=== PATIENT | female | born 1960 | race African-American/Black ===

== ENCOUNTER 2017-11-06 12:27 | Emergency (ER) | payer MEDICAID ==
[~2017-11-06] VITALS: Ht 162.6 cm; Wt 77.0 kg
[2017-11-06] MEDS ORDERED: LEVETIRACETAM 500MG PREMIX 100 ML IV ONE (14:15)
[2017-11-06] MEDS ORDERED: SODIUM CHLORIDE 0.9% 1,000 ML IV ONE (14:15)
[2017-11-06 15:07] LABS: PROTHROMBIN TIME 10.7 sec (9.4-11.6)
[2017-11-06 15:10] LABS: BASOPHILS % 0.3 % (0.0-2.0); EOSINOPHILS % 0.4 % (0.0-5.0); HEMATOCRIT. 46.1 % (36.0-48.0); HEMOGLOBIN. 15.5 g/dL (12.0-16.0); LYMPHOCYTES % 12.9 % (20.0-50.0); MEAN CORPUSCULAR HEMOGLOBIN 33.5 pg (28.0-32.0); MEAN CORPUSCULAR VOLUME 99.8 fL (81.0-99.0); MONOCYTES % 5.4 % (2.0-8.0); RED BLOOD CELL COUNT 4.62 mill/uL (4.2-5.4); RED CELL DISTRIBUTION WIDTH 17.6 % (11.6-14.6)
[2017-11-06 15:14] LABS: CARBON DIOXIDE 24 mEq/L (21-32); CHLORIDE 107 mEq/L (98-107)
[2017-11-06 15:36] LABS: MEAN PLATELET VOLUME 8.2 fl (7.4-10.4); PLATELET 176 x1000/uL (130-400)
[2017-11-06 17:38] LABS: CLARITY URINE CLEAR (CLEAR); COLOR URINE YELLOW (YELLOW); KETONES URINE NEGATIVE (NEGATIVE); LEUKOCYTE ESTERASE URINE NEGATIVE (NEGATIVE); NITRITE URINE NEGATIVE (NEGATIVE); OCCULT BLOOD URINE NEGATIVE (NEGATIVE); PROTEIN URINE NEGATIVE (NEGATIVE); SPECIFIC GRAVITY URINE 1.022 (1.005-1.030)
[2017-11-06 19:43] VITALS: BP 133/70
== END 2017-11-06 20:02 | disposition home or self-care (01) ==
LOC: ER 12:48
DX: R56.9 Unspecified convulsions (principal); I69.398 Other sequelae of cerebral infarction; G93.89 Other specified disorders of brain; I69.354 Hemiplegia and hemiparesis following cerebral infarction affecting left non-dominant side; Z74.01 Bed confinement status; R03.0 Elevated blood-pressure reading, without diagnosis of hypertension; R94.31 Abnormal electrocardiogram [ECG] [EKG]; R79.89 Other specified abnormal findings of blood chemistry; J45.909 Unspecified asthma, uncomplicated; Z88.6 Allergy status to analgesic agent
CPT/HCPCS: 36415; 70450; 71010; 80053; 81003; 85025; 85610; 85730; 93005; 93970; 96365; 99285; J1953; J7030; Z7610

== ENCOUNTER 2018-09-09 09:31 | Emergency (ER) | payer MEDICAID ==
[~2018-09-09] VITALS: Ht 167.6 cm; Wt 100.0 kg
[2018-09-09] MEDS ORDERED: LEVETIRACETAM 500MG PREMIX 100 ML IV ONE (10:15)
[2018-09-09 10:40] LABS: BASOPHILS % 0.4 % (0.0-2.0); EOSINOPHILS % 1.1 % (0.0-5.0); HEMATOCRIT. 47.9 % (36.0-48.0); HEMOGLOBIN. 15.9 g/dL (12.0-16.0); LYMPHOCYTES % 42.3 % (20.0-50.0); MEAN CORPUSCULAR HEMOGLOBIN 31.5 pg (28.0-32.0); MEAN CORPUSCULAR VOLUME 94.9 fL (81.0-99.0); MEAN PLATELET VOLUME 8.2 fl (7.4-10.4); MONOCYTES % 5.1 % (2.0-8.0); NEUTROPHILS % 51.1 % (40.0-76.0); PLATELET 263 x1000/uL (130-400); RED BLOOD CELL COUNT 5.05 mill/uL (4.2-5.4); RED CELL DISTRIBUTION WIDTH 13.4 % (11.6-14.6)
[2018-09-09 11:06] LABS: CHLORIDE 106 mEq/L (98-107)
[2018-09-09 11:11] LABS: ETHANOL BLOOD < 10 mg/dL
[2018-09-09 11:19] LABS: CARBAMAZEPINE < 0.5 ug/mL (4-12); PHENOBARBITAL < 2.1 ug/mL (15.0-40.0); VALPROIC ACID < 3.0 ug/mL (50-100)
[2018-09-09 11:25] LABS: COLOR URINE YELLOW (YELLOW); KETONES URINE NEGATIVE (NEGATIVE); LEUKOCYTE ESTERASE URINE NEGATIVE (NEGATIVE); NITRITE URINE NEGATIVE (NEGATIVE); OCCULT BLOOD URINE NEGATIVE (NEGATIVE); PROTEIN URINE 1+ (NEGATIVE); SPECIFIC GRAVITY URINE 1.022 (1.005-1.030); UROBILINOGEN URINE 0.2 E.U./dL (0.2-1.0)
[2018-09-09 11:26] LABS: CLARITY URINE HAZY (CLEAR)
[2018-09-09 11:45] LABS: *AMPHETAMINES SCREEN URINE NEGATIVE (NEGATIVE); *BARBITURATES SCREEN URINE NEGATIVE (NEGATIVE); *BENZODIAZEPINES SCREEN URINE NEGATIVE (NEGATIVE); *COCAINE SCREEN URINE NEGATIVE (NEGATIVE); CANNABINOID URINE SCREEN NEGATIVE (NEGATIVE); METHADONE URINE SCREEN NEGATIVE (NEGATIVE); OPIATES URINE SCREEN NEGATIVE (NEGATIVE); PHENCYCLIDINE URINE SCREEN NEGATIVE (NEGATIVE)
[2018-09-09 12:43] VITALS: BP 142/94
== END 2018-09-09 12:51 | disposition home or self-care (01) ==
LOC: ER 09:31
DX: G40.909 Epilepsy, unspecified, not intractable, without status epilepticus (principal); I10 Essential (primary) hypertension; F17.210 Nicotine dependence, cigarettes, uncomplicated; Z71.6 Tobacco abuse counseling
CPT/HCPCS: 36415; 80053; 80156; 80165; 80184; 80185; 80305; 81003; 82962; 85025; 96365; 99284; 99406; G0482; J1953

== ENCOUNTER 2018-12-30 08:52 | Emergency (ER) | payer MEDICAID ==
[~2018-12-30] VITALS: Ht 165.1 cm; Wt 80.0 kg
[2018-12-30] MEDS ORDERED: LEVETIRACETAM 1000MG/100ML 100 ML IV ONE (09:45)
[2018-12-30 10:38] LABS: CHLORIDE 108 mEq/L (98-107)
[2018-12-30 10:45] LABS: BASOPHILS % 0.3 % (0.0-2.0); EOSINOPHILS % 1.5 % (0.0-5.0); HEMATOCRIT. 46.2 % (36.0-48.0); HEMOGLOBIN. 15.8 g/dL (12.0-16.0); LYMPHOCYTES % 37.3 % (20.0-50.0); MEAN CORPUSCULAR HEMOGLOBIN 31.4 pg (28.0-32.0); MEAN CORPUSCULAR VOLUME 91.9 fL (81.0-99.0); MEAN PLATELET VOLUME 8.1 fl (7.4-10.4); MONOCYTES % 7.2 % (2.0-8.0); NEUTROPHILS % 53.7 % (40.0-76.0); PLATELET 333 x1000/uL (130-400); RED BLOOD CELL COUNT 5.03 mill/uL (4.2-5.4); RED CELL DISTRIBUTION WIDTH 13.2 % (11.6-14.6)
[2018-12-30 12:00] VITALS: BP 138/88
== END 2018-12-30 12:00 | disposition home or self-care (01) ==
LOC: ER 08:52
DX: G40.909 Epilepsy, unspecified, not intractable, without status epilepticus (principal)
CPT/HCPCS: 36415; 71045; 80053; 85025; 96365; 99284; J1953; Z7610

== ENCOUNTER 2019-08-17 21:59 | Inpatient (IN) | payer MEDICAID ==
[~2019-08-17] VITALS: Ht 165.1 cm; Wt 93.0 kg
[2019-08-17] MEDS ORDERED: IPRATROPIUM BROMIDE (0.02%) 0.5MG/2.5ML NEB HHN STA (23:18)
[2019-08-17] MEDS ORDERED: ALBUTEROL (0.083%) 2.5MG/3ML NEB HHN STA (23:18)
[2019-08-17 23:53] LABS: BASOPHILS % 0.8 % (0.0-2.0); EOSINOPHILS % 5.5 % (0.0-5.0); HEMATOCRIT. 39.8 % (36.0-48.0); HEMOGLOBIN. 13.3 g/dL (12.0-16.0); LYMPHOCYTES % 37.1 % (20.0-50.0); MEAN CORPUSCULAR HEMOGLOBIN 30.6 pg (28.0-32.0); MEAN CORPUSCULAR VOLUME 91.8 fL (81.0-99.0); MEAN PLATELET VOLUME 8.2 fl (7.4-10.4); MONOCYTES % 7.6 % (2.0-8.0); PLATELET 257 x1000/uL (130-400); RED BLOOD CELL COUNT 4.33 mill/uL (4.2-5.4); RED CELL DISTRIBUTION WIDTH 14.4 % (11.6-14.6)
[2019-08-18 00:07] LABS: CHLORIDE 110 mEq/L (98-107)
[2019-08-18] MEDS ORDERED: CEFTRIAXONE 1 G PREMIX 50 ML IV ONE (01:00)
[2019-08-18] MEDS ORDERED: AZITHROMYCIN 500 MG in DEXT 5% WATER 250 ML IV ONE (01:00)
[2019-08-18 05:00] VITALS: BP 136/83
[2019-08-18] MEDS ORDERED: KEPPSOL MT (06:11)
[2019-08-18] MEDS ORDERED: CLOP75TA4 PO (06:11)
[2019-08-18] MEDS ORDERED: LISI-604 PO (06:11)
[2019-08-18] MEDS ORDERED: AMLO5TAB88 PO (06:11)
[2019-08-18] MEDS ORDERED: LIP40 MT (06:11)
[2019-08-18] MEDS ORDERED: IPRATROPIUM/ALBUTEROL 0.5-3(2.5)MG/3ML NEB HHN PRN (07:15)
[2019-08-18] MEDS ORDERED: CLONIDINE 0.1MG TABLET PO PRN (07:15)
[2019-08-18] MEDS ORDERED: ACETAMINOPHEN 325MG TABLET PO PRN ×2 (07:15→07:45)
[2019-08-18] MEDS ORDERED: LORAZEPAM 0.5MG TABLET PO PRN (07:15)
[2019-08-18] MEDS ORDERED: ONDANSETRON HCL 4MG/2ML INJ IV PRN (07:15)
[2019-08-18] MEDS ORDERED: HYDROCODONE/ACETAMINOPHEN 5/325MG TABLET PO PRN (07:45)
[2019-08-18] MEDS ORDERED: POTASSIUM CHLORIDE 20MEQ TABLET SR PO NR (08:15)
[2019-08-18] MEDS ORDERED: AMLODIPINE 5MG TABLET PO SCH (09:00)
[2019-08-18] MEDS ORDERED: CLOPIDOGREL 75MG TABLET PO SCH (09:00)
[2019-08-18] MEDS ORDERED: LEVETIRACETAM 500MG/5ML CUP PO SCH (09:00)
[2019-08-18] MEDS ORDERED: LISINOPRIL 20MG TABLET PO SCH (09:00)
[2019-08-18 09:25] LABS: *AMPHETAMINES SCREEN URINE NEGATIVE (NEGATIVE); *BARBITURATES SCREEN URINE NEGATIVE (NEGATIVE); *BENZODIAZEPINES SCREEN URINE NEGATIVE (NEGATIVE)
[2019-08-18 09:26] LABS: *COCAINE SCREEN URINE NEGATIVE (NEGATIVE); CANNABINOID URINE SCREEN NEGATIVE (NEGATIVE); METHADONE URINE SCREEN NEGATIVE (NEGATIVE); OPIATES URINE SCREEN NEGATIVE (NEGATIVE); PHENCYCLIDINE URINE SCREEN NEGATIVE (NEGATIVE)
[2019-08-18] MEDS: LEVETIRACETAM 500MG/5ML CUP PO SCH ×2 (09:40→20:25)
[2019-08-18] MEDS: AMLODIPINE 5MG TABLET PO SCH (09:41)
[2019-08-18] MEDS: ATORVASTATIN CALCIUM 40MG TABLET PO SCH (09:41)
[2019-08-18] MEDS: CLOPIDOGREL 75MG TABLET PO SCH (09:42)
[2019-08-18] MEDS: LISINOPRIL 20MG TABLET PO SCH (09:42)
[2019-08-18] MEDS: ENOXAPARIN 30MG/0.3ML SYR SUBCUT SCH ×2 (09:43→20:24)
[2019-08-18 09:52] LABS: BASOPHILS % 0.7 % (0.0-2.0); EOSINOPHILS % 3.8 % (0.0-5.0); HEMATOCRIT. 39.2 % (36.0-48.0); HEMOGLOBIN. 12.9 g/dL (12.0-16.0); LYMPHOCYTES % 29.2 % (20.0-50.0); MEAN CORPUSCULAR HEMOGLOBIN 30.4 pg (28.0-32.0); MEAN CORPUSCULAR VOLUME 92.2 fL (81.0-99.0); MEAN PLATELET VOLUME 8.2 fl (7.4-10.4); MONOCYTES % 6.6 % (2.0-8.0); NEUTROPHILS % 59.7 % (40.0-76.0); PLATELET 257 x1000/uL (130-400); RED BLOOD CELL COUNT 4.25 mill/uL (4.2-5.4); RED CELL DISTRIBUTION WIDTH 14.7 % (11.6-14.6)
[2019-08-18 10:18] LABS: CHLORIDE 109 mEq/L (98-107)
[2019-08-18 10:26] LABS: HDL CHOLESTEROL 61 mg/dL (40-59); LDL CHOLESTEROL 99 mg/dL (5-100)
[2019-08-18 12:00] VITALS: BP 114/70
[2019-08-18] MEDS: GUAIFENESIN-DM 200MG-20MG/10ML UDC PO PRN ×2 (13:41→23:14)
[2019-08-18 16:00] VITALS: BP 106/66
[2019-08-18 20:00] VITALS: BP 120/72
[2019-08-18] MEDS ORDERED: ATORVASTATIN CALCIUM 40MG TABLET PO SCH (21:00)
[2019-08-18] MEDS: IPRATROPIUM/ALBUTEROL 0.5-3(2.5)MG/3ML NEB HHN SCH (21:10)
[2019-08-18] MEDS: HYDROCODONE/ACETAMINOPHEN 5/325MG TABLET PO PRN (23:15)
[2019-08-18] MEDS: CEFTRIAXONE 1,000 MG in DEXTROSE 5% WATER 50 ML IV SCH (23:16)
[2019-08-18] MEDS: AZITHROMYCIN 500 MG in DEXT 5% WATER 250 ML IV SCH (23:17)
[2019-08-19] VITALS: BP 116/70
[2019-08-19] MEDS ORDERED: CEFTRIAXONE 1 G PREMIX 50 ML IV SCH
[2019-08-19 04:00] VITALS: BP 123/60
[2019-08-19 07:13] LABS: CHLORIDE 110 mEq/L (98-107)
[2019-08-19] MEDS: ATORVASTATIN CALCIUM 40MG TABLET PO SCH (09:07)
[2019-08-19] MEDS: LEVETIRACETAM 500MG/5ML CUP PO SCH ×2 (09:07→20:24)
[2019-08-19] MEDS: AMLODIPINE 5MG TABLET PO SCH (09:07)
[2019-08-19] MEDS: CLOPIDOGREL 75MG TABLET PO SCH (09:07)
[2019-08-19] MEDS: ENOXAPARIN 30MG/0.3ML SYR SUBCUT SCH ×2 (09:08→20:25)
[2019-08-19] MEDS: LISINOPRIL 20MG TABLET PO SCH (09:08)
[2019-08-19 09:30] LABS: BASOPHILS % 0.8 % (0.0-2.0); EOSINOPHILS % 6.7 % (0.0-5.0); HEMATOCRIT. 39.4 % (36.0-48.0); HEMOGLOBIN. 13.2 g/dL (12.0-16.0); LYMPHOCYTES % 39.2 % (20.0-50.0); MEAN CORPUSCULAR HEMOGLOBIN 30.9 pg (28.0-32.0); MEAN CORPUSCULAR VOLUME 91.7 fL (81.0-99.0); MEAN PLATELET VOLUME 8.4 fl (7.4-10.4); MONOCYTES % 6.8 % (2.0-8.0); NEUTROPHILS % 46.5 % (40.0-76.0); PLATELET 275 x1000/uL (130-400); RED BLOOD CELL COUNT 4.29 mill/uL (4.2-5.4); RED CELL DISTRIBUTION WIDTH 14.1 % (11.6-14.6)
[2019-08-19] MEDS: IPRATROPIUM/ALBUTEROL 0.5-3(2.5)MG/3ML NEB HHN SCH ×3 (10:20→20:36)
[2019-08-19 12:00] VITALS: BP_SYST 105; BP_SYST 112; BP_DIAS 65; BP_DIAS 78
[2019-08-19] MEDS: HYDROCODONE/ACETAMINOPHEN 5/325MG TABLET PO PRN (13:42)
[2019-08-19 16:00] VITALS: BP 104/64
[2019-08-19] MEDS: MONTELUKAST SODIUM 10MG TABLET PO SCH (17:42)
[2019-08-19] MEDS ORDERED: IOHEXOL-350 100 ML BOTTLE ONE (18:30)
[2019-08-19 20:00] VITALS: BP 127/83
[2019-08-19] MEDS: DOCUSATE SODIUM 100MG CAPSULE PO PRN (20:24)
[2019-08-19] MEDS: GUAIFENESIN-DM 200MG-20MG/10ML UDC PO PRN (20:35)
[2019-08-19] MEDS: BUDESONIDE 0.5MG/2ML NEB HHN SCH (20:36)
[2019-08-20] VITALS: BP 135/90
[2019-08-20] MEDS: CEFTRIAXONE 1,000 MG in DEXTROSE 5% WATER 50 ML IV SCH (00:23)
[2019-08-20] MEDS: AZITHROMYCIN 500 MG in DEXT 5% WATER 250 ML IV SCH (00:23)
[2019-08-20 04:00] VITALS: BP 118/68
[2019-08-20 08:49] VITALS: BP 109/58
[2019-08-20] MEDS: IPRATROPIUM/ALBUTEROL 0.5-3(2.5)MG/3ML NEB HHN SCH ×3 (09:01→20:19)
[2019-08-20] MEDS: BUDESONIDE 0.5MG/2ML NEB HHN SCH ×2 (09:01→20:19)
[2019-08-20] MEDS: LEVETIRACETAM 500MG/5ML CUP PO SCH ×2 (09:54→20:31)
[2019-08-20] MEDS: LISINOPRIL 20MG TABLET PO SCH (09:56)
[2019-08-20] MEDS: CLOPIDOGREL 75MG TABLET PO SCH (09:56)
[2019-08-20] MEDS: ATORVASTATIN CALCIUM 40MG TABLET PO SCH (09:57)
[2019-08-20] MEDS: AMLODIPINE 5MG TABLET PO SCH (09:57)
[2019-08-20] MEDS: ENOXAPARIN 30MG/0.3ML SYR SUBCUT SCH ×2 (09:57→20:31)
[2019-08-20] MEDS: HYDROCODONE/ACETAMINOPHEN 5/325MG TABLET PO PRN (10:06)
[2019-08-20 12:00] VITALS: BP 117/61
[2019-08-20] MEDS ORDERED: BISACODYL 5MG TABLET PO PRN (14:15)
[2019-08-20] MEDS ORDERED: BISACODYL 5MG TABLET PO NR (14:45)
[2019-08-20] MEDS: DOCUSATE SODIUM 250MG CAPSULE PO SCH (15:43)
[2019-08-20 16:34] VITALS: BP 144/77
[2019-08-20] MEDS: MONTELUKAST SODIUM 10MG TABLET PO SCH (17:50)
[2019-08-20 20:00] VITALS: BP 123/72
[2019-08-21] VITALS: BP 103/58
[2019-08-21] MEDS: CEFTRIAXONE 1,000 MG in DEXTROSE 5% WATER 50 ML IV SCH (02:36)
[2019-08-21] MEDS: HYDROCODONE/ACETAMINOPHEN 5/325MG TABLET PO PRN ×2 (03:03→18:42)
[2019-08-21 04:00] VITALS: BP 114/73
[2019-08-21] MEDS: AZITHROMYCIN 500 MG in DEXT 5% WATER 250 ML IV SCH (04:00)
[2019-08-21 07:43] LABS: BASOPHILS % 0.6 % (0.0-2.0); EOSINOPHILS % 7.7 % (0.0-5.0); HEMATOCRIT. 35.2 % (36.0-48.0); HEMOGLOBIN. 11.9 g/dL (12.0-16.0); LYMPHOCYTES % 37.3 % (20.0-50.0); MEAN CORPUSCULAR HEMOGLOBIN 31.1 pg (28.0-32.0); MEAN CORPUSCULAR VOLUME 91.6 fL (81.0-99.0); MEAN PLATELET VOLUME 8.5 fl (7.4-10.4); MONOCYTES % 7.8 % (2.0-8.0); NEUTROPHILS % 46.6 % (40.0-76.0); PLATELET 266 x1000/uL (130-400); RED BLOOD CELL COUNT 3.84 mill/uL (4.2-5.4); RED CELL DISTRIBUTION WIDTH 14.4 % (11.6-14.6)
[2019-08-21 08:00] VITALS: BP 107/62
[2019-08-21 08:12] LABS: CHLORIDE 109 mEq/L (98-107)
[2019-08-21] MEDS: LEVETIRACETAM 500MG/5ML CUP PO SCH ×2 (09:08→21:59)
[2019-08-21] MEDS: CLOPIDOGREL 75MG TABLET PO SCH (09:09)
[2019-08-21] MEDS: DOCUSATE SODIUM 100MG CAPSULE PO PRN (09:09)
[2019-08-21] MEDS: ATORVASTATIN CALCIUM 40MG TABLET PO SCH (09:09)
[2019-08-21] MEDS: LISINOPRIL 20MG TABLET PO SCH (09:09)
[2019-08-21] MEDS: ENOXAPARIN 30MG/0.3ML SYR SUBCUT SCH ×2 (09:09→22:00)
[2019-08-21] MEDS: AMLODIPINE 5MG TABLET PO SCH (09:09)
[2019-08-21] MEDS: DOCUSATE SODIUM 250MG CAPSULE PO SCH (09:13)
[2019-08-21] MEDS: BUDESONIDE 0.5MG/2ML NEB HHN SCH ×2 (10:15→21:48)
[2019-08-21 12:53] VITALS: BP 118/66
[2019-08-21] MEDS: IPRATROPIUM/ALBUTEROL 0.5-3(2.5)MG/3ML NEB HHN SCH ×2 (14:15→21:48)
[2019-08-21] MEDS: MONTELUKAST SODIUM 10MG TABLET PO SCH (16:21)
[2019-08-21 16:49] VITALS: BP 97/57
[2019-08-21 20:00] VITALS: BP 103/60
[2019-08-22 00:02] VITALS: BP 103/66
[2019-08-22] MEDS: CEFTRIAXONE 1,000 MG in DEXTROSE 5% WATER 50 ML IV SCH (01:51)
[2019-08-22] MEDS: AZITHROMYCIN 500 MG in DEXT 5% WATER 250 ML IV SCH (01:51)
[2019-08-22 04:00] VITALS: BP 134/83
[2019-08-22] MEDS: HYDROCODONE/ACETAMINOPHEN 5/325MG TABLET PO PRN (04:39)
[2019-08-22] MEDS: IPRATROPIUM/ALBUTEROL 0.5-3(2.5)MG/3ML NEB HHN SCH ×3 (07:53→14:01)
[2019-08-22] MEDS: BUDESONIDE 0.5MG/2ML NEB HHN SCH (07:53)
[2019-08-22 08:00] VITALS: BP 108/74
[2019-08-22] MEDS: CLOPIDOGREL 75MG TABLET PO SCH (10:04)
[2019-08-22] MEDS: LEVETIRACETAM 500MG/5ML CUP PO SCH (10:04)
[2019-08-22] MEDS: ATORVASTATIN CALCIUM 40MG TABLET PO SCH (10:05)
[2019-08-22] MEDS: DOCUSATE SODIUM 250MG CAPSULE PO SCH (10:05)
[2019-08-22] MEDS: AMLODIPINE 5MG TABLET PO SCH (10:05)
[2019-08-22] MEDS: LISINOPRIL 20MG TABLET PO SCH (10:06)
[2019-08-22] MEDS: ENOXAPARIN 30MG/0.3ML SYR SUBCUT SCH (10:19)
[2019-08-22 12:39] VITALS: BP 108/77
== END 2019-08-22 16:17 | disposition home or self-care (01) | DRG 133 ==
LOC: ER 23:23 → 8WST 08-18 02:32 → EDBEDREQ 08-18 02:36 → EDBEDREQTM 08-18 02:36 → ENRESERV 08-18 03:32
PROVIDERS: ADMIT Internal Medicine; ATTEND Internal Medicine
DX: J96.00 Acute respiratory failure, unspecified whether with hypoxia or hypercapnia (principal); J18.1 Lobar pneumonia, unspecified organism; D72.1 Eosinophilia; D68.59 Other primary thrombophilia; J44.0 Chronic obstructive pulmonary disease with (acute) lower respiratory infection; J45.901 Unspecified asthma with (acute) exacerbation; R56.9 Unspecified convulsions; J44.1 Chronic obstructive pulmonary disease with (acute) exacerbation; E78.5 Hyperlipidemia, unspecified; I10 Essential (primary) hypertension; K59.00 Constipation, unspecified; I45.81 Long QT syndrome; E87.6 Hypokalemia; I69.354 Hemiplegia and hemiparesis following cerebral infarction affecting left non-dominant side; Z85.038 Personal history of other malignant neoplasm of large intestine; Z80.6 Family history of leukemia; Z80.0 Family history of malignant neoplasm of digestive organs; Z87.891 Personal history of nicotine dependence; Z79.899 Other long term (current) drug therapy; Z88.8 Allergy status to other drugs, medicaments and biological substances; Z92.21 Personal history of antineoplastic chemotherapy; Z98.891 History of uterine scar from previous surgery
CPT/HCPCS: 36415; 71045; 71275; 80048; 80061; 80305; 83036; 83605; 83735; 83880; 84145; 84484; 85379; 93005; 93970; 94640; 96374; 97112; 97116; 97162; 97166; 99285; C1893; J0456; J0696; J1650; J7060; J7611; J7620; J7626; Q9967

== ENCOUNTER 2021-05-31 11:20 | Inpatient (IN) | payer MEDICAID ==
[~2021-05-31] VITALS: Ht 162.6 cm; Wt 82.1 kg
[~2021-05-31 11:20] MED LIST: AMLO5TAB88 PO; CLOP75TA4 PO; KEPPSOL MT; LIP40 MT; LISI20TA31 PO
[2021-05-31] MEDS ORDERED: LORAZEPAM 0.5MG TABLET PO ONE (12:00)
[2021-05-31 12:36] LABS: BASOPHILS % 0.4 % (0.0-2.0); EOSINOPHILS % 0.9 % (0.0-5.0); HEMOGLOBIN. 9.4 g/dL (12.0-16.0); LYMPHOCYTES % 18.4 % (20.0-50.0); MEAN CORPUSCULAR HEMOGLOBIN 17.7 pg (28.0-32.0); MEAN CORPUSCULAR VOLUME 59.8 fL (81.0-99.0); MEAN PLATELET VOLUME 8.5 fl (7.4-10.4); MONOCYTES % 4.2 % (2.0-8.0); NEUTROPHILS % 76.1 % (40.0-76.0); PLATELET 461 x1000/uL (130-400); RED BLOOD CELL COUNT 5.34 mill/uL (4.2-5.4); RED CELL DISTRIBUTION WIDTH 22.7 % (11.6-14.6)
[2021-05-31 12:41] LABS: CHLORIDE 114 mEq/L (98-107)
[2021-05-31 12:44] LABS: PROTHROMBIN TIME 10.7 sec (9.6-11.0)
[2021-05-31 12:46] LABS: ETHANOL BLOOD < 10 mg/dL
[2021-05-31 12:51] LABS: T4 FREE 0.88 ng/dL (0.76-1.46)
[2021-05-31 13:05] LABS: PLATELET ESTIMATE SLIGHTLY INCREASED
[2021-05-31] MEDS ORDERED: POTASSIUM CHLORIDE 20MEQ TABLET SR PO ONE (14:00)
[2021-05-31] MEDS: DIPHENHYDRAMINE 50MG/ML VIAL IV PRN (19:03)
[2021-05-31 21:59] VITALS: BP 154/84
[2021-05-31] MEDS ORDERED: LORAZEPAM 1MG TABLET PO PRN (23:45)
[2021-06-01] VITALS: BP 128/86
[2021-06-01 04:00] VITALS: BP 123/77
[2021-06-01 07:28] LABS: BASOPHILS % 0.8 % (0.0-2.0); EOSINOPHILS % 3.6 % (0.0-5.0); HEMOGLOBIN. 8.8 g/dL (12.0-16.0); LYMPHOCYTES % 38.8 % (20.0-50.0); MEAN CORPUSCULAR HEMOGLOBIN 17.8 pg (28.0-32.0); MEAN CORPUSCULAR VOLUME 60.2 fL (81.0-99.0); MEAN PLATELET VOLUME 8.5 fl (7.4-10.4); MONOCYTES % 7.3 % (2.0-8.0); NEUTROPHILS % 49.5 % (40.0-76.0); PLATELET 404 x1000/uL (130-400); RED BLOOD CELL COUNT 4.98 mill/uL (4.2-5.4); RED CELL DISTRIBUTION WIDTH 22.1 % (11.6-14.6)
[2021-06-01 07:43] LABS: CHLORIDE 114 mEq/L (98-107)
[2021-06-01 07:50] LABS: LDL CHOLESTEROL 78 mg/dL (5-100)
[2021-06-01 07:51] LABS: HDL CHOLESTEROL 57 mg/dL (40-59)
[2021-06-01 08:22] VITALS: BP 133/67
[2021-06-01] MEDS: LEVETIRACETAM 500MG TABLET PO SCH ×2 (08:54→17:50)
[2021-06-01] MEDS: METOPROLOL TARTRATE 50MG TABLET PO SCH ×2 (08:56→17:50)
[2021-06-01] MEDS: CLOPIDOGREL 75MG TABLET PO SCH (08:57)
[2021-06-01] MEDS: AMLODIPINE 10MG TABLET PO SCH (08:57)
[2021-06-01 12:26] VITALS: BP 138/79
[2021-06-01] MEDS ORDERED: POTASSIUM CHLORIDE 20MEQ TABLET SR PO NR (14:30)
[2021-06-01] MEDS ORDERED: NAPROXEN 250MG TABLET PO PRN (15:45)
[2021-06-01 16:00] VITALS: BP_SYST 130; BP_DIAS 83; BP_DIAS 84
[2021-06-01] MEDS ORDERED: KETOROLAC 10MG TABLET PO PRN ×2 (18:15→20:00)
[2021-06-01 20:00] VITALS: BP 112/70
[2021-06-01] MEDS ORDERED: LORAZEPAM 2MG/ML CPJ IV PRN (20:30)
[2021-06-01] MEDS: ATORVASTATIN CALCIUM 40MG TABLET PO SCH (20:46)
[2021-06-02] VITALS: BP_SYST 106; BP_DIAS 64; BP_DIAS 68
[2021-06-02 04:00] VITALS: BP 101/71
[2021-06-02 08:00] VITALS: BP 108/65
[2021-06-02] MEDS: CLOPIDOGREL 75MG TABLET PO SCH (09:04)
[2021-06-02] MEDS: METOPROLOL TARTRATE 50MG TABLET PO SCH ×2 (09:04→18:08)
[2021-06-02] MEDS: LEVETIRACETAM 500MG TABLET PO SCH ×2 (09:04→18:07)
[2021-06-02] MEDS: AMLODIPINE 10MG TABLET PO SCH (09:05)
[2021-06-02 12:00] VITALS: BP 106/64
[2021-06-02 13:41] LABS: TOTAL IRON BINDING CAPACITY 372 ug/dL (250-450)
[2021-06-02 15:24] VITALS: BP 119/79
[2021-06-02] MEDS: ATORVASTATIN CALCIUM 40MG TABLET PO SCH (20:43)
[2021-06-02 20:44] VITALS: BP 104/66
[2021-06-03] VITALS (7 sets, daily range): BP systolic 94–122; BP diastolic 47–81
[2021-06-03] MEDS: LEVETIRACETAM 500MG TABLET PO SCH ×2 (10:02→16:52)
[2021-06-03] MEDS: CLOPIDOGREL 75MG TABLET PO SCH (10:02)
[2021-06-03] MEDS: AMLODIPINE 10MG TABLET PO SCH (10:02)
[2021-06-03] MEDS: METOPROLOL TARTRATE 50MG TABLET PO SCH ×2 (10:02→16:53)
[2021-06-03] MEDS: FERROUS SULFATE 325MG TABLET PO SCH (16:52)
[2021-06-03] MEDS: DOCUSATE SODIUM 100MG CAPSULE PO SCH (16:53)
[2021-06-04] VITALS: BP 106/70
[2021-06-04] MEDS: ATORVASTATIN CALCIUM 40MG TABLET PO SCH ×2 (00:18→20:18)
[2021-06-04 04:00] VITALS: BP 123/74
[2021-06-04 08:00] VITALS: BP 100/56
[2021-06-04] MEDS: AMLODIPINE 10MG TABLET PO SCH (09:00)
[2021-06-04] MEDS: METOPROLOL TARTRATE 50MG TABLET PO SCH ×2 (09:00→17:00)
[2021-06-04] MEDS: DOCUSATE SODIUM 100MG CAPSULE PO SCH ×2 (09:14→17:12)
[2021-06-04] MEDS: CLOPIDOGREL 75MG TABLET PO SCH (09:14)
[2021-06-04] MEDS: FERROUS SULFATE 325MG TABLET PO SCH ×3 (09:14→17:12)
[2021-06-04] MEDS: LEVETIRACETAM 500MG TABLET PO SCH ×2 (09:14→17:12)
[2021-06-04 12:00] VITALS: BP 93/46
[2021-06-04 16:00] VITALS: BP 108/72
[2021-06-04 20:00] VITALS: BP 118/58
[2021-06-05] VITALS: BP 115/61
[2021-06-05 04:00] VITALS: BP 115/57
[2021-06-05 08:00] VITALS: BP 116/58
[2021-06-05] MEDS: AMLODIPINE 10MG TABLET PO SCH (09:30)
[2021-06-05] MEDS: LEVETIRACETAM 500MG TABLET PO SCH ×2 (09:31→17:02)
[2021-06-05] MEDS: FERROUS SULFATE 325MG TABLET PO SCH ×2 (09:31→17:04)
[2021-06-05] MEDS: CLOPIDOGREL 75MG TABLET PO SCH (09:31)
[2021-06-05] MEDS: DOCUSATE SODIUM 100MG CAPSULE PO SCH ×2 (09:31→17:02)
[2021-06-05] MEDS: METOPROLOL TARTRATE 50MG TABLET PO SCH ×2 (09:32→17:04)
[2021-06-05] MEDS ORDERED: LACTULOSE 20G/30ML UDC PO NR (09:45)
[2021-06-05 12:00] VITALS: BP 133/80
[2021-06-05 16:00] VITALS: BP 111/67
[2021-06-05 20:00] VITALS: BP 106/64
[2021-06-05] MEDS: ATORVASTATIN CALCIUM 40MG TABLET PO SCH (21:03)
[2021-06-06] VITALS: BP 114/67
[2021-06-06 04:00] VITALS: BP 151/70
[2021-06-06 08:00] VITALS: BP 133/61
[2021-06-06] MEDS: DOCUSATE SODIUM 100MG CAPSULE PO SCH ×2 (08:43→17:27)
[2021-06-06] MEDS: LEVETIRACETAM 500MG TABLET PO SCH ×2 (08:43→17:27)
[2021-06-06] MEDS: FERROUS SULFATE 325MG TABLET PO SCH ×3 (08:43→17:27)
[2021-06-06] MEDS: CLOPIDOGREL 75MG TABLET PO SCH (08:43)
[2021-06-06] MEDS: METOPROLOL TARTRATE 50MG TABLET PO SCH ×2 (08:44→17:27)
[2021-06-06] MEDS: AMLODIPINE 10MG TABLET PO SCH (08:44)
[2021-06-06 12:00] VITALS: BP 145/77
[2021-06-06] MEDS: DIPHENHYDRAMINE 50MG/ML VIAL IV PRN (13:10)
[2021-06-06 16:00] VITALS: BP 119/70
[2021-06-06] MEDS ORDERED: LACTULOSE 20G/30ML UDC PO NR (17:00)
[2021-06-06 20:00] VITALS: BP 96/69
[2021-06-06] MEDS: ATORVASTATIN CALCIUM 40MG TABLET PO SCH (21:28)
[2021-06-07] VITALS (7 sets, daily range): BP systolic 108–117; BP diastolic 51–76
[2021-06-07] MEDS: AMLODIPINE 10MG TABLET PO SCH (09:00)
[2021-06-07] MEDS: METOPROLOL TARTRATE 50MG TABLET PO SCH ×2 (09:00→17:11)
[2021-06-07] MEDS: CLOPIDOGREL 75MG TABLET PO SCH (09:02)
[2021-06-07] MEDS: FERROUS SULFATE 325MG TABLET PO SCH ×3 (09:02→17:11)
[2021-06-07] MEDS: DOCUSATE SODIUM 100MG CAPSULE PO SCH ×2 (09:02→17:11)
[2021-06-07] MEDS: LEVETIRACETAM 500MG TABLET PO SCH ×2 (09:02→17:11)
[2021-06-07] MEDS: DIPHENHYDRAMINE 50MG/ML VIAL IV PRN (18:05)
[2021-06-07] MEDS: ATORVASTATIN CALCIUM 40MG TABLET PO SCH (20:37)
[2021-06-08] VITALS: BP 114/67
[2021-06-08 04:00] VITALS: BP 125/65
[2021-06-08] MEDS: FERROUS SULFATE 325MG TABLET PO SCH ×3 (06:50→18:05)
[2021-06-08 08:00] VITALS: BP 136/76
[2021-06-08] MEDS: LEVETIRACETAM 500MG TABLET PO SCH ×2 (09:51→18:05)
[2021-06-08] MEDS: DOCUSATE SODIUM 100MG CAPSULE PO SCH ×2 (09:51→18:05)
[2021-06-08] MEDS: METOPROLOL TARTRATE 50MG TABLET PO SCH ×2 (09:52→17:00)
[2021-06-08] MEDS: AMLODIPINE 10MG TABLET PO SCH (09:52)
[2021-06-08] MEDS: CLOPIDOGREL 75MG TABLET PO SCH (09:52)
[2021-06-08 12:00] VITALS: BP 112/67
[2021-06-08 16:00] VITALS: BP 105/61
[2021-06-08 20:00] VITALS: BP 111/58
[2021-06-08] MEDS: ATORVASTATIN CALCIUM 40MG TABLET PO SCH (21:58)
[2021-06-09] VITALS: BP 106/65
[2021-06-09 04:00] VITALS: BP 102/62
[2021-06-09 08:00] VITALS: BP 109/63
[2021-06-09] MEDS: CLOPIDOGREL 75MG TABLET PO SCH (09:43)
[2021-06-09] MEDS: FERROUS SULFATE 325MG TABLET PO SCH ×3 (09:43→17:55)
[2021-06-09] MEDS: METOPROLOL TARTRATE 50MG TABLET PO SCH ×2 (09:43→17:54)
[2021-06-09] MEDS: AMLODIPINE 10MG TABLET PO SCH (09:43)
[2021-06-09] MEDS: DOCUSATE SODIUM 100MG CAPSULE PO SCH ×2 (09:43→17:00)
[2021-06-09] MEDS: LEVETIRACETAM 500MG TABLET PO SCH ×2 (09:43→17:54)
[2021-06-09 12:00] VITALS: BP 116/65
[2021-06-09] MEDS ORDERED: IPRATROPIUM/ALBUTEROL 0.5-3(2.5)MG/3ML NEB HHN PRN (12:45)
[2021-06-09 16:00] VITALS: BP 122/75
[2021-06-09] MEDS ORDERED: ACETAMINOPHEN 325MG TABLET PO PRN (19:30)
[2021-06-09 20:00] VITALS: BP 119/69
[2021-06-09] MEDS: ATORVASTATIN CALCIUM 40MG TABLET PO SCH (21:47)
[2021-06-10] VITALS: BP 132/62
[2021-06-10 04:00] VITALS: BP 118/65
[2021-06-10 08:00] VITALS: BP 108/51
[2021-06-10] MEDS: DOCUSATE SODIUM 100MG CAPSULE PO SCH (08:39)
[2021-06-10] MEDS: FERROUS SULFATE 325MG TABLET PO SCH (08:39)
[2021-06-10] MEDS: CLOPIDOGREL 75MG TABLET PO SCH (08:39)
[2021-06-10] MEDS: LEVETIRACETAM 500MG TABLET PO SCH (08:39)
[2021-06-10] MEDS: METOPROLOL TARTRATE 50MG TABLET PO SCH (08:44)
[2021-06-10] MEDS: AMLODIPINE 10MG TABLET PO SCH (08:45)
== END 2021-06-10 11:50 | DRG 384 ==
LOC: ER 12:43 → ENRESERV 21:05 → 6WST 22:17 → 7WST 06-03 14:51 → 6EST 06-05 12:53
PROVIDERS: ADMIT Internal Medicine; ATTEND Internal Medicine
DX: S00.83XA Contusion of other part of head, initial encounter (principal); U07.1 COVID-19; I69.954 Hemiplegia and hemiparesis following unspecified cerebrovascular disease affecting left non-dominant side; D64.9 Anemia, unspecified; E66.9 Obesity, unspecified; E87.6 Hypokalemia; G40.909 Epilepsy, unspecified, not intractable, without status epilepticus; F41.9 Anxiety disorder, unspecified; J45.909 Unspecified asthma, uncomplicated; I10 Essential (primary) hypertension; Z68.30 Body mass index [BMI] 30.0-30.9, adult; Z88.6 Allergy status to analgesic agent; Z79.899 Other long term (current) drug therapy; Z82.49 Family history of ischemic heart disease and other diseases of the circulatory system; Z71.3 Dietary counseling and surveillance; R00.2 Palpitations
CPT/HCPCS: 36415; 70486; 71045; 80048; 80053; 80061; 80320; 82728; 83540; 83550; 83735; 83880; 84439; 84443; 84484; 85025; 93005; 97162; 97166; 97530; 97535; 99285; J1200; J2060; U0003; U0005; G0480